=== PATIENT | female | born 1950 | race Two or more races ===

== ENCOUNTER 2018-03-17 16:57 | Inpatient (IN) | payer OTHER ==
[~2018-03-17] VITALS: Ht 149.9 cm; Wt 78.5 kg
[~2018-03-17 16:57] MED LIST: ADVAIR 2501 DISK W/1 IH; AMARIL; AVANDAMET 2 MG/1 TA1 PO; COUMADIN4 MG; CRESTOR20 MG PO; FIORICET TABLET1 TAB; FLEXERIL5 MG; GLYBURIDE MICRON6 MG PO; INTESTINEX1 CA1 PO; LEVOTHROID88 MCG PO; MAVIK2 MG; METFORMIN HCL1000 MG; NABUMETONE500 MG PO; NEURONTIN800 MG PO; OXYC1TAB9 PO; PERCOCET 5/321 UDTAB PO; PERCOCET 5/3251 TAB PO; PREVACID30 MG PO; SINGULAIR10 MG PO; TOPROL XL25 MG PO; VASOFLEX TABLET1 TAB
[2018-03-21] MEDS ORDERED: FLAGYL500MG PO (12:26)
[2018-03-21] MEDS ORDERED: COUMADIN4 MG PO (12:26)
[2018-03-21] MEDS ORDERED: CIPRO500 MG PO (12:26)
[2018-03-21] MEDS ORDERED: LEVOTHYROXINE75 MCG PO (12:26)
[2018-03-21] MEDS ORDERED: GABAPENTIN800 MG PO (12:26)
== END 2018-03-21 16:22 | disposition home or self-care (01) | DRG 392 ==
LOC: ER 16:57 → MEDI 03-18 13:25
DX: K57.32 Diverticulitis of large intestine without perforation or abscess without bleeding (principal); D68.312 Antiphospholipid antibody with hemorrhagic disorder; J45.998 Other asthma; E11.42 Type 2 diabetes mellitus with diabetic polyneuropathy; I10 Essential (primary) hypertension; E03.8 Other specified hypothyroidism; Z79.01 Long term (current) use of anticoagulants

== ENCOUNTER 2018-08-13 10:15 | Outpatient (CLI) | payer OTHER ==
[~2018-08-13 10:15] MED LIST changes: +CIPRO500 MG PO; +COUMADIN4 MG PO; +FLAGYL500MG PO; +GABAPENTIN800 MG PO; +LEVOTHYROXINE75 MCG PO
== END 2018-08-13 16:28 | disposition home or self-care (01) ==
LOC: SONOGRAMA 10:15 → MAMO-SONO 08-14 10:45 → SONOGRAMA 08-14 16:28
DX: S43.421A Sprain of right rotator cuff capsule, initial encounter (principal)

== ENCOUNTER 2019-03-03 09:06 | Emergency (ER) | payer OTHER ==
[~2019-03-03] VITALS: Ht 149.9 cm; Wt 79.4 kg
== END 2019-03-03 12:16 | disposition home or self-care (01) ==
LOC: ER 09:06
DX: M54.5 Low back pain (principal); M54.2 Cervicalgia

== ENCOUNTER 2019-03-06 11:49 | Emergency (ER) | payer OTHER ==
[~2019-03-06] VITALS: Ht 149.9 cm; Wt 79.4 kg
[2019-03-06] MEDS ORDERED: FORTAMET1000 MG (12:25)
[2019-03-06] MEDS ORDERED: NEURONTIN800 MG (12:25)
[2019-03-06] MEDS ORDERED: TOPROL XL25 M1 (12:25)
[2019-03-06] MEDS ORDERED: COUMADIN4 MG (12:25)
[2019-03-06] MEDS ORDERED: SYNTHROID75 MCG (12:25)
[2019-03-06] MEDS ORDERED: HUMULIN 70100 UNIT/2 (12:25)
== END 2019-03-06 13:58 | disposition home or self-care (01) ==
LOC: ER 11:49
DX: S40.012A Contusion of left shoulder, initial encounter (principal); S70.01XA Contusion of right hip, initial encounter; S70.02XA Contusion of left hip, initial encounter; M25.512 Pain in left shoulder; M25.552 Pain in left hip; M25.551 Pain in right hip; W01.198A Fall on same level from slipping, tripping and stumbling with subsequent striking against other object, initial encounter; Y93.89 Activity, other specified; Y92.012 Bathroom of single-family (private) house as the place of occurrence of the external cause; Y99.8 Other external cause status

== ENCOUNTER 2019-04-22 19:52 | Emergency (ER) | payer OTHER ==
[~2019-04-22] VITALS: Ht 149.9 cm; Wt 81.6 kg
[~2019-04-22 19:52] MED LIST changes: +FORTAMET1000 MG; +HUMULIN 70100 UNIT/2; +NEURONTIN800 MG; +SYNTHROID75 MCG; +TOPROL XL25 M1
== END 2019-04-22 22:30 | disposition home or self-care (01) ==
LOC: ER 19:52
DX: S39.012A Strain of muscle, fascia and tendon of lower back, initial encounter (principal); M47.897 Other spondylosis, lumbosacral region; X50.0XXA Overexertion from strenuous movement or load, initial encounter; Y93.E9 Activity, other interior property and clothing maintenance; Y92.018 Other place in single-family (private) house as the place of occurrence of the external cause; Y99.8 Other external cause status

== ENCOUNTER → 2019-06-24 | Outpatient (CLI) | payer OTHER | END | disposition home or self-care (01) | LOC: NUCLEAR 07:00 | DX: I82.90 Acute embolism and thrombosis of unspecified vein (principal); D68.312 Antiphospholipid antibody with hemorrhagic disorder; R59.1 Generalized enlarged lymph nodes | CPT/HCPCS: 78815; A9552 ==

== ENCOUNTER 2019-09-22 13:19 | Emergency (ER) | payer OTHER ==
[~2019-09-22] VITALS: Ht 149.9 cm; Wt 81.6 kg
== END 2019-09-22 15:08 | disposition home or self-care (01) ==
LOC: ER 13:19
DX: N76.4 Abscess of vulva (principal)

== ENCOUNTER 2019-11-18 10:03 | Emergency (ER) | payer OTHER ==
[~2019-11-18] VITALS: Ht 157.5 cm; Wt 75.3 kg
== END 2019-11-18 17:44 | disposition home or self-care (01) ==
LOC: ER 10:03
DX: K52.9 Noninfective gastroenteritis and colitis, unspecified (principal)

== ENCOUNTER 2023-08-30 06:10 | Outpatient (CLI) | payer OTHER ==
[2023-08-30 07:31] LABS: HEMATOCRIT 35.7 % (36.0-45.00); HEMOGLOBIN 11.8 g/dL (12.0-15.00); MEAN CELL VOLUME 89.2 fL (80.00-100.00); MEAN CORPUSCULAR HEMOGLOBIN 29.4 pg (27.00-32.0); MEAN CORPUSCULAR HGB CONC 32.9 g/dl (32.0-36.0); PLATELET COUNT 300 K/uL (150-450); RED BLOOD COUNT 4.01 M/uL (4.00-6.00); RED CELL DISTRIBUTION WIDTH 15.4 % (11.5-14.5)
[2023-08-30 07:32] LABS: URINE APPEARANCE Clear; URINE BILIRRUBIN Negative (NEGATIVE); URINE BLOOD Small; URINE COLOR Yellow; URINE LEUKOCYTE Trace; URINE NITRATE Negative; URINE PROTEIN Negative (NEGATIVE); URINE UROBILINOGEN 0.2 E.U./dl
[2023-08-30 07:38] LABS: URINE BACTERIA 113.2 uL (0.0-1933); URINE EPITHELIAL CELLS 10.6 uL (0.0-38.8); URINE RBC 12.3 uL (0.0-20.8); URINE WBC 14.5 uL (0.0-23.2)
[2023-08-30 08:09] LABS: URINE GLUCOSE 250 MG/DL (NEGATIVE)
[2023-08-30 08:30] LABS: ALBUMIN 3.4 gm/dL (3.4-5.0); BILIRUBIN TOTAL 0.47 mg/dL (0.3-1.2); CHOL HDL RATIO 4.2 (0-5.0); CREATININE SERUM 0.96 mg/dL (0.55-1.02); GFR 56.97; GLOBULINA 4.3 G/DL (2.4-3.5); POTASSIUM 4.43 mEq/L (3.5-5.1); TOTAL PROTEIN 7.7 gm/dL (6.4-8.2); TSH 0.865 uIU/mL (0.358-3.74)
== END 2023-08-30 06:13 | disposition home or self-care (01) ==
LOC: LAB 06:10
PROVIDERS: ATTEND Psychiatry & Neurology Clinical Neurophysiology
DX: I12.9 Hypertensive chronic kidney disease with stage 1 through stage 4 chronic kidney disease, or unspecified chronic kidney disease (principal); E78.2 Mixed hyperlipidemia; E11.22 Type 2 diabetes mellitus with diabetic chronic kidney disease; N18.31 Chronic kidney disease, stage 3a; N28.1 Cyst of kidney, acquired; E03.9 Hypothyroidism, unspecified; E53.8 Deficiency of other specified B group vitamins; E11.69 Type 2 diabetes mellitus with other specified complication; E06.3 Autoimmune thyroiditis; E03.8 Other specified hypothyroidism; Z68.35 Body mass index [BMI] 35.0-35.9, adult; E66.01 Morbid (severe) obesity due to excess calories; M81.0 Age-related osteoporosis without current pathological fracture; I11.9 Hypertensive heart disease without heart failure

== ENCOUNTER 2023-09-02 13:26 | Outpatient (CLI) | payer OTHER | END 2023-09-02 13:28 | disposition home or self-care (01) | LOC: TOM 13:26 → MRI 13:26 → TOM 13:28 → MRI 13:28 | PROVIDERS: ATTEND Psychiatry & Neurology Clinical Neurophysiology | DX: N28.1 Cyst of kidney, acquired (principal); I12.9 Hypertensive chronic kidney disease with stage 1 through stage 4 chronic kidney disease, or unspecified chronic kidney disease; F01.50 Vascular dementia, unspecified severity, without behavioral disturbance, psychotic disturbance, mood disturbance, and anxiety; I62.03 Nontraumatic chronic subdural hemorrhage ==

== ENCOUNTER 2023-11-23 13:04 | Inpatient (IN) | payer OTHER ==
[~2023-11-23] VITALS: Ht 162.6 cm; Wt 81.6 kg
[2023-11-23 13:44] LABS: HEMATOCRIT 35.4 % (36.0-45.00); HEMOGLOBIN 11.3 g/dL (12.0-15.00); MEAN CELL VOLUME 84.4 fL (80.00-100.00); MEAN CORPUSCULAR HEMOGLOBIN 26.8 pg (27.00-32.0); MEAN CORPUSCULAR HGB CONC 31.8 g/dl (32.0-36.0); PLATELET COUNT 186 K/uL (150-450); RED CELL DISTRIBUTION WIDTH 17.7 % (11.5-14.5)
[2023-11-23] MEDS ORDERED: ADULT LOW DOSE81 M1 PO (13:44)
[2023-11-23] MEDS ORDERED: ATORVASTATIN CA40 MG PO (13:44)
[2023-11-23 14:08] LABS: ALBUMIN 2.5 gm/dL (3.4-5.0); BILIRUBIN TOTAL 0.73 mg/dL (0.3-1.2); CALCIUM 9.7 mg/dL (8.5-10.1); CREATININE SERUM 3.26 mg/dL (0.55-1.02); GFR 13.86; GLOBULINA 4.5 G/DL (2.4-3.5); INR 1.42; PARTIAL THROMBOPLASTIN TIME 26.3 SECONDS (22.0-34.0); POTASSIUM 4.64 mEq/L (3.5-5.1); PROTHROMBIN TIME 14.5 SECONDS (9.0-11.5)
[2023-11-23 14:27] LABS: ABG PH 7.464 (7.35-7.45)
[2023-11-23 14:28] LABS: ABG PO2 163.2 mmHg (80-100); ABG pCO2 26.1 mmHg (35-45); BASE EXCESS -3.7 mmol/l; BICARBONATE 18.3 mmol/l (23-25); SaO2 99.5 %; Tco2 19.1 mmol/l; allen test SATISFACTORY; o2 21 %; puncture site RADIAL RIGHT
[2023-11-23] MEDS ORDERED: NOREPINEPHRINE BITARTRATE 1 MG/ML AMPUL IV SCH (14:45)
[2023-11-23] MEDS ORDERED: NOREPINEPHRINE BITARTRATE 8 MG IV SCH ×2 (14:45)
[2023-11-23] MEDS ORDERED: 0.9 % SODIUM CHLORIDE 1,000 ML IV SCH ×2 (14:45→23:00)
[2023-11-23] MEDS ORDERED: PIPERACILLIN/TAZOBACTAM SODIUM 2.25 GM VIAL IV ONE (15:15)
[2023-11-23] MEDS ORDERED: CEFTRIAXONE SODIUM 2,000 MG VIAL IV ONE (15:15)
[2023-11-23 15:56] LABS: URINE APPEARANCE Turbid; URINE BILIRRUBIN Negative (NEGATIVE); URINE BLOOD Large; URINE COLOR Yellow; URINE LEUKOCYTE Moderate; URINE NITRATE Negative; URINE PROTEIN Trace (NEGATIVE)
[2023-11-23 16:01] LABS: URINE EPITHELIAL CELLS 134.6 uL (0.0-38.8); URINE RBC 362.3 uL (0.0-20.8); URINE WBC 5170.4 uL (0.0-23.2)
[2023-11-23 17:02] LABS: URINE BACTERIA > 9821.5 uL (0.0-1933); URINE GLUCOSE >=1000 MG/DL (NEGATIVE)
[2023-11-23] MEDS ORDERED: DEXTROSE 50 % IN WATER 0.5 G/ML DISP.SYRIN IV PRN (23:00)
[2023-11-23] MEDS ORDERED: INSULIN LISPRO 1,000 UNIT/10 ML UNITS SUBCUTANEO PRN (23:00)
[2023-11-23] MEDS ORDERED: ACETAMINOPHEN 650 MG SUPP.RECT RECTAL PRN (23:30)
[2023-11-23] MEDS ORDERED: NOREPINEPHRINE BITARTRATE 4 MG in DEXTROSE 5 % IN WATER 250 ML IV SCH (23:30)
[2023-11-23] MEDS ORDERED: DOPamine HCL IN DEXTROSE 5 % 250 ML IV SCH (23:30)
[2023-11-24] MEDS ORDERED: PIPERACILLIN/TAZOBACTAM SODIUM 2.25 GM in DEXTROSE 5 % IN WATER 50 ML IV SCH (01:00)
[2023-11-24 02:51] LABS: ABG PH 7.355 (7.35-7.45); ABG PO2 123.1 mmHg (80-100); ABG pCO2 28.9 mmHg (35-45); BASE EXCESS -8.1 mmol/l; BICARBONATE 15.8 mmol/l (23-25); Tco2 16.7 mmol/l; o2 28 %
[2023-11-24 02:52] LABS: allen test SATISFACTORY; puncture site RADIAL RIGHT
[2023-11-24 02:53] LABS: SaO2 98.4 %
[2023-11-24 02:54] LABS: ABG PH 7.358 (7.35-7.45); ABG PO2 145.3 mmHg (80-100); ABG pCO2 4.2 mmHg (35-45); BASE EXCESS -18.7 mmol/l
[2023-11-24 02:55] LABS: BICARBONATE 2.3 mmol/l (23-25); Tco2 2.4 mmol/l; allen test SATISFACTORY; o2 100 %; puncture site RADIAL RIGHT
[2023-11-24 02:56] LABS: SaO2 98.9 %
[2023-11-24 03:02] LABS: CKMB 17.6 NG/ML (0.5-3.6)
[2023-11-24] MEDS ORDERED: LevETIRAcetam 500 MG/5 ML VIAL IV STA (04:16)
[2023-11-24 06:50] LABS: ABG PH 7.344 (7.35-7.45); ABG PO2 128.5 mmHg (80-100); ABG pCO2 29.6 mmHg (35-45); BASE EXCESS -8.4 mmol/l; BICARBONATE 15.8 mmol/l (23-25); Tco2 16.7 mmol/l; o2 28 %
[2023-11-24 06:51] LABS: allen test SATISFACTORY; puncture site RADIAL RIGHT
[2023-11-24 06:54] LABS: SaO2 98.6 %
[2023-11-24 07:45] LABS: ALBUMIN 1.9 gm/dL (3.4-5.0); BILIRUBIN TOTAL 0.59 mg/dL (0.3-1.2); BILIRUBIN,CONJUGATED 0.24 mg/dL (0.0-0.2); BILIRUBIN,UNCONJUGATED 0.35 mg/dL (0.0-0.6); CALCIUM 7.2 mg/dL (8.5-10.1); CHOL HDL RATIO 2.3 (0-5.0); GLOBULINA 3.3 G/DL (2.4-3.5); POTASSIUM 5.04 mEq/L (3.5-5.1); TOTAL PROTEIN 5.2 gm/dL (6.4-8.2)
[2023-11-24 08:37] LABS: C-REACTIVE PROTEIN 12.6 MG/DL (0.00-0.29); GFR 10.29
[2023-11-24 08:39] LABS: CKMB 20.8 NG/ML (0.5-3.6); CREATININE SERUM 4.22 mg/dL (0.55-1.02)
[2023-11-24 08:49] LABS: INR 1.81; PARTIAL THROMBOPLASTIN TIME 34.5 SECONDS (22.0-34.0)
[2023-11-24 08:51] LABS: URINE APPEARANCE Turbid; URINE BILIRRUBIN Negative (NEGATIVE); URINE BLOOD Large; URINE COLOR Dark Yellow; URINE EPITHELIAL CELLS 63.3 uL (0.0-38.8); URINE LEUKOCYTE Moderate; URINE NITRATE Negative; URINE RBC 49.7 uL (0.0-20.8); URINE WBC 661.4 uL (0.0-23.2)
[2023-11-24 08:58] LABS: URINE GLUCOSE >=1000 MG/DL (NEGATIVE); URINE PROTEIN 100 (NEGATIVE)
[2023-11-24] MEDS ORDERED: ENOXAPARIN SODIUM 40 MG/0.4 ML SYRINGE SUBCUTANEO SCH (09:00)
[2023-11-24] MEDS ORDERED: LevETIRAcetam 500 MG/5 ML VIAL IV ONE (09:00)
[2023-11-24] MEDS ORDERED: LevETIRAcetam 500 MG/5 ML VIAL IV SCH ×2 (09:00)
[2023-11-24] MEDS ORDERED: FAMOTIDINE/PF 20 MG in 0.9 % SODIUM CHLORIDE 8 ML IV PUSH SCH (09:00)
[2023-11-24 09:07] LABS: PROTHROMBIN TIME 18.2 SECONDS (9.0-11.5)
[2023-11-24 09:14] LABS: HEMATOCRIT 30.4 % (36.0-45.00); HEMOGLOBIN 9.3 g/dL (12.0-15.00); MEAN CELL VOLUME 85.7 fL (80.00-100.00); MEAN CORPUSCULAR HEMOGLOBIN 26.3 pg (27.00-32.0); MEAN CORPUSCULAR HGB CONC 30.6 g/dl (32.0-36.0); RED BLOOD COUNT 3.54 M/uL (4.00-6.00); RED CELL DISTRIBUTION WIDTH 17.7 % (11.5-14.5)
[2023-11-24 09:22] LABS: PLATELET COUNT 121 K/uL (150-450)
[2023-11-24] MEDS ORDERED: CHLORHEXIDINE GLUCONATE 120 ML BOTTLE TOP ONE (09:38)
[2023-11-24 10:00] LABS: ERYTHROCYTE SEDIMENTATION RATE 37 mm/hr
[2023-11-24] MEDS ORDERED: INSULIN NPH HUMAN ISOPHANE 1,000 UNITS/10 ML UNITS SUBCUTANEO STA (10:18)
[2023-11-24] MEDS ORDERED: MEROPENEM 1,000 MG in 0.9 % SODIUM CHLORIDE 100 ML IV SCH (12:34)
[2023-11-24 15:54] LABS: AMYLASE 212 U/L (25-115); LIPASE 44 U/L (13-75)
[2023-11-24 16:07] LABS: T4 TOTAL 4.9 UG/DL (4.8-13.9); TSH 1.76 uIU/mL (0.358-3.74)
[2023-11-24 16:19] LABS: CKMB 14.3 NG/ML (0.5-3.6)
[2023-11-24] MEDS ORDERED: (FF) Daptomycin 50 MG/ML IV SCH (17:00)
[2023-11-24] MEDS ORDERED: LevETIRAcetam 5 MG/1 ML REDILUIDO IV SCH (21:00)
[2023-11-24] MEDS ORDERED: INSULIN NPH HUMAN ISOPHANE 1,000 UNITS/10 ML UNITS SUBCUTANEO SCH (21:00)
[2023-11-25 06:25] LABS: ABG PH 7.361 (7.35-7.45); ABG PO2 126.8 mmHg (80-100); ABG pCO2 28.2 mmHg (35-45); BASE EXCESS -8.1 mmol/l; BICARBONATE 15.6 mmol/l (23-25); SaO2 98.6 %; Tco2 16.5 mmol/l
[2023-11-25 06:26] LABS: puncture site RADIAL RIGHT
[2023-11-25 06:28] LABS: o2 28 %
[2023-11-25 06:34] LABS: HEMATOCRIT 27.3 % (36.0-45.00); MEAN CELL VOLUME 84.6 fL (80.00-100.00); MEAN CORPUSCULAR HEMOGLOBIN 26.9 pg (27.00-32.0); MEAN CORPUSCULAR HGB CONC 31.8 g/dl (32.0-36.0); PLATELET COUNT 148 K/uL (150-450); RED BLOOD COUNT 3.23 M/uL (4.00-6.00); RED CELL DISTRIBUTION WIDTH 18.1 % (11.5-14.5)
[2023-11-25 06:42] LABS: HEMOGLOBIN 8.7 g/dL (12.0-15.00)
[2023-11-25 07:01] LABS: ALBUMIN 1.7 gm/dL (3.4-5.0); BILIRUBIN TOTAL 0.59 mg/dL (0.3-1.2); GLOBULINA 3.1 G/DL (2.4-3.5); MAGNESIUM 2.4 mg/dL (1.8-2.4); POTASSIUM 4.08 mEq/L (3.5-5.1); TOTAL PROTEIN 4.8 gm/dL (6.4-8.2)
[2023-11-25 07:12] LABS: GFR 8.95
[2023-11-25 07:13] LABS: CALCIUM 6.4 mg/dL (8.5-10.1)
[2023-11-25 07:14] LABS: CREATININE SERUM 4.76 mg/dL (0.55-1.02)
[2023-11-25] MEDS ORDERED: PHENYLEPHRINE HCL 20 MG in 0.9 % SODIUM CHLORIDE 250 ML IV SCH (07:45)
[2023-11-25] MEDS ORDERED: HYDROCORTISONE SODIUM SUCC/PF 100 MG VIAL IV SCH (08:00)
[2023-11-25] MEDS ORDERED: ZINC OXIDE 30 GM,NYSTATIN 30 GM,SILVER SULFADIAZINE 50 GM TOP SCH (13:00)
[2023-11-25] MEDS ORDERED: DOPamine HCL IN DEXTROSE 5 % 250 ML IV SCH (13:45)
[2023-11-26 06:37] LABS: ABG PH 7.355 (7.35-7.45); ABG PO2 147.7 mmHg (80-100); ABG pCO2 23.6 mmHg (35-45); BASE EXCESS -10.5 mmol/l
[2023-11-26 06:38] LABS: BICARBONATE 12.9 mmol/l (23-25); Tco2 13.6 mmol/l; allen test SATISFACTORY; o2 28 %; puncture site RADIAL LEFT
[2023-11-26 07:12] LABS: HEMATOCRIT 26.1 % (36.0-45.00); MEAN CELL VOLUME 83.8 fL (80.00-100.00); MEAN CORPUSCULAR HGB CONC 32.2 g/dl (32.0-36.0); PLATELET COUNT 162 K/uL (150-450); RED BLOOD COUNT 3.12 M/uL (4.00-6.00); RED CELL DISTRIBUTION WIDTH 17.5 % (11.5-14.5)
[2023-11-26 07:13] LABS: HEMOGLOBIN 8.4 g/dL (12.0-15.00); MEAN CORPUSCULAR HEMOGLOBIN 26.9 pg (27.00-32.0)
[2023-11-26 07:28] LABS: ALBUMIN 1.6 gm/dL (3.4-5.0); BILIRUBIN TOTAL 0.77 mg/dL (0.3-1.2); GLOBULINA 3.2 G/DL (2.4-3.5); POTASSIUM 4.01 mEq/L (3.5-5.1); TOTAL PROTEIN 4.8 gm/dL (6.4-8.2)
[2023-11-26 07:31] LABS: GFR 9.41
[2023-11-26 07:41] LABS: CREATININE SERUM 4.56 mg/dL (0.55-1.02)
[2023-11-26] MEDS ORDERED: PHENYLEPHRINE HCL 80 MG in 0.9 % SODIUM CHLORIDE 1,000 ML IV SCH (07:45)
[2023-11-26] MEDS ORDERED: CALCIUM GLUCONATE 100 MG/ML VIAL IV ONE (08:45)
[2023-11-26] MEDS ORDERED: FAMOTIDINE/PF 20 MG in 0.9 % SODIUM CHLORIDE 8 ML IV PUSH SCH (09:00)
[2023-11-26] MEDS ORDERED: NOREPINEPHRINE BITARTRATE 8 MG in DEXTROSE 5 % IN WATER 250 ML IV SCH (14:45)
[2023-11-26] MEDS ORDERED: SODIUM BICARBONATE 1 MEQ/ML DISP.SYRIN 50ML IV SCH (18:11)
[2023-11-26] MEDS ORDERED: INSULIN NPH HUMAN ISOPHANE 1,000 UNITS/10 ML UNITS SUBCUTANEO SCH (21:00)
[2023-11-26 21:52] LABS: ob POSITIVE (NEGATIVE)
[2023-11-26] MEDS ORDERED: DEXTROSE 5%-WATER 250ML IV.SOLN ONE (23:59)
[2023-11-27 07:01] LABS: ALBUMIN 1.4 gm/dL (3.4-5.0); BILIRUBIN TOTAL 0.62 mg/dL (0.3-1.2); CREATININE SERUM 3.37 mg/dL (0.55-1.02); GFR 13.34; GLOBULINA 2.5 G/DL (2.4-3.5); POTASSIUM 3.04 mEq/L (3.5-5.1); TOTAL PROTEIN 3.9 gm/dL (6.4-8.2)
[2023-11-27 07:12] LABS: CALCIUM 5.4 mg/dL (8.5-10.1); MEAN CELL VOLUME 81.5 fL (80.00-100.00); MEAN CORPUSCULAR HGB CONC 32.1 g/dl (32.0-36.0); RED BLOOD COUNT 2.39 M/uL (4.00-6.00); RED CELL DISTRIBUTION WIDTH 18.4 % (11.5-14.5)
[2023-11-27 08:05] LABS: HEMATOCRIT 19.5 % (36.0-45.00); MEAN CORPUSCULAR HEMOGLOBIN 26.3 pg (27.00-32.0)
[2023-11-27 08:07] LABS: HEMOGLOBIN 6.3 g/dL (12.0-15.00)
[2023-11-27 08:08] LABS: PLATELET COUNT 128 K/uL (150-450)
[2023-11-27 08:45] LABS: ABG PO2 152.6 mmHg (80-100); ABG pCO2 22.7 mmHg (35-45); BASE EXCESS -5.7 mmol/l; BICARBONATE 15.8 mmol/l (23-25); SaO2 99.4 %; Tco2 16.5 mmol/l
[2023-11-27 08:46] LABS: allen test SATISFACTORY; o2 28 %; puncture site RADIAL RIGHT
[2023-11-27] MEDS ORDERED: POTASSIUM CHLORIDE IN WATER 100 ML IV ONE (08:57)
[2023-11-27] MEDS ORDERED: PANTOPRAZOLE SODIUM 40 MG/VIAL VIAL IV SCH (11:45)
[2023-11-27] MEDS ORDERED: PANTOPRAZOLE SODIUM 40 MG/VIAL VIAL IV ONE (11:45)
[2023-11-27] MEDS ORDERED: DEXTROSE 5% IV SCH (16:30)
[2023-11-27] MEDS ORDERED: WATER IV SCH (16:30)
[2023-11-27] MEDS ORDERED: NOREPINEPHRINE BITARTRATE IV SCH (16:30)
[2023-11-27] MEDS ORDERED: INSULIN NPH HUMAN ISOPHANE 1,000 UNITS/10 ML UNITS SUBCUTANEO SCH (21:00)
[2023-11-28] MEDS ORDERED: HYDROCORTISONE SODIUM SUCC/PF 100 MG VIAL IV SCH ×2 (05:00→22:45)
[2023-11-28] MEDS ORDERED: SODIUM CHLORIDE 0.45 % 1,000 ML IV SCH (07:00)
[2023-11-28] MEDS ORDERED: INSULIN NPH HUMAN ISOPHANE 1,000 UNITS/10 ML UNITS SUBCUTANEO SCH (09:00)
[2023-11-28 09:24] LABS: ABG PH 7.419 (7.35-7.45)
[2023-11-28 09:25] LABS: ABG PO2 150.6 mmHg (80-100); ABG pCO2 25.9 mmHg (35-45); BASE EXCESS -6.2 mmol/l; BICARBONATE 16.4 mmol/l (23-25); SaO2 99.3 %; Tco2 17.2 mmol/l; o2 28 %
[2023-11-28 09:26] LABS: allen test SATISFACTORY; puncture site RADIAL RIGHT
[2023-11-28] MEDS ORDERED: NOREPINEPHRINE BITARTRATE 8 MG in DEXTROSE 5 % IN WATER 250 ML IV SCH ×2 (14:30→14:45)
[2023-11-28 14:44] LABS: HEMATOCRIT 27.2 % (36.0-45.00); MEAN CELL VOLUME 83.9 fL (80.00-100.00); MEAN CORPUSCULAR HGB CONC 33.7 g/dl (32.0-36.0); RED BLOOD COUNT 3.25 M/uL (4.00-6.00); RED CELL DISTRIBUTION WIDTH 15.7 % (11.5-14.5)
[2023-11-28 14:45] LABS: HEMOGLOBIN 9.2 g/dL (12.0-15.00); MEAN CORPUSCULAR HEMOGLOBIN 28.3 pg (27.00-32.0); PLATELET COUNT 101 K/uL (150-450)
[2023-11-28 15:32] LABS: ALBUMIN 1.7 gm/dL (3.4-5.0); BILIRUBIN TOTAL 1.04 mg/dL (0.3-1.2); CREATININE SERUM 2.33 mg/dL (0.55-1.02); GFR 20.42; GLOBULINA 2.7 G/DL (2.4-3.5); TOTAL PROTEIN 4.4 gm/dL (6.4-8.2)
[2023-11-28 15:39] LABS: CALCIUM 5.4 mg/dL (8.5-10.1)
[2023-11-28 15:46] LABS: MAGNESIUM 1.4 mg/dL (1.8-2.4)
[2023-11-28] MEDS ORDERED: WATER IV SCH (16:30)
[2023-11-28] MEDS ORDERED: DEXTROSE 5% IV SCH (16:30)
[2023-11-28] MEDS ORDERED: NOREPINEPHRINE BITARTRATE IV SCH (16:30)
[2023-11-28] MEDS ORDERED: POTASSIUM CHLORIDE IN WATER 100 ML IV SCH (17:00)
[2023-11-28] MEDS ORDERED: LEVOTHYROXINE SODIUM 100 MCG/VIAL VIAL IV SCH (17:00)
[2023-11-29 07:14] LABS: HEMATOCRIT 25.8 % (36.0-45.00); MEAN CELL VOLUME 84.4 fL (80.00-100.00); MEAN CORPUSCULAR HGB CONC 34.2 g/dl (32.0-36.0); RED BLOOD COUNT 3.06 M/uL (4.00-6.00); RED CELL DISTRIBUTION WIDTH 15.6 % (11.5-14.5)
[2023-11-29 07:16] LABS: MEAN CORPUSCULAR HEMOGLOBIN 28.7 pg (27.00-32.0)
[2023-11-29 07:17] LABS: HEMOGLOBIN 8.8 g/dL (12.0-15.00); PLATELET COUNT 110 K/uL (150-450)
[2023-11-29 07:36] LABS: ALBUMIN 1.6 gm/dL (3.4-5.0); BILIRUBIN TOTAL 0.83 mg/dL (0.3-1.2); CREATININE SERUM 2.1 mg/dL (0.55-1.02); GFR 23.02; GLOBULINA 2.6 G/DL (2.4-3.5); PHOSPHOROUS 3.6 mg/dL (2.5-4.9); POTASSIUM 3.51 mEq/L (3.5-5.1); TOTAL PROTEIN 4.2 gm/dL (6.4-8.2)
[2023-11-29 07:45] LABS: CALCIUM 5.9 mg/dL (8.5-10.1); MAGNESIUM 1.3 mg/dL (1.8-2.4)
[2023-11-29] MEDS ORDERED: DEXTROSE 5 % IN WATER 1,000 ML IV SCH (08:00)
[2023-11-29] MEDS ORDERED: MIDODRINE HCL 10 MG TABLET PO SCH (09:00)
[2023-11-29 09:21] LABS: ABG PH 7.432 (7.35-7.45)
[2023-11-29 09:22] LABS: ABG PO2 288.2 mmHg (80-100); ABG pCO2 23.3 mmHg (35-45); BASE EXCESS -6.9 mmol/l; BICARBONATE 15.2 mmol/l (23-25); SaO2 99.9 %; Tco2 15.9 mmol/l; allen test SATISFACTORY; o2 100 %; puncture site RADIAL LEFT
[2023-11-29] MEDS ORDERED: CALCIUM GLUCONATE 100 MG/ML VIAL IV ONE (10:00)
[2023-11-29] MEDS ORDERED: MAGNESIUM SULFATE IN WATER 2 GM/50 ML PIGGYBAG IV ONE (10:00)
[2023-11-30 07:26] LABS: HEMATOCRIT 24.2 % (36.0-45.00); MEAN CELL VOLUME 84.2 fL (80.00-100.00); MEAN CORPUSCULAR HGB CONC 34.1 g/dl (32.0-36.0); RED BLOOD COUNT 2.88 M/uL (4.00-6.00); RED CELL DISTRIBUTION WIDTH 16.5 % (11.5-14.5)
[2023-11-30 07:44] LABS: MEAN CORPUSCULAR HEMOGLOBIN 28.8 pg (27.00-32.0); PLATELET COUNT 122 K/uL (150-450)
[2023-11-30 07:45] LABS: HEMOGLOBIN 8.3 g/dL (12.0-15.00)
[2023-11-30 07:59] LABS: ALBUMIN 1.6 gm/dL (3.4-5.0); BILIRUBIN TOTAL 0.77 mg/dL (0.3-1.2); CREATININE SERUM 1.7 mg/dL (0.55-1.02); GFR 29.38; GLOBULINA 2.4 G/DL (2.4-3.5); MAGNESIUM 1.6 mg/dL (1.8-2.4); PHOSPHOROUS 3.9 mg/dL (2.5-4.9); POTASSIUM 3.38 mEq/L (3.5-5.1)
[2023-11-30] MEDS ORDERED: CEFTAROLINE FOSAMIL ACETATE 600 MG VIAL IV SCH (21:00)
[2023-12-01] MEDS ORDERED: AMIODARONE HCL 200 MG TABLET PO STA (02:35)
[2023-12-01] MEDS ORDERED: AMIODARONE IN DEXTROSE,ISO-OSM 360 MG/200 ML IV.SOLN IV ONE (04:14)
[2023-12-01] MEDS ORDERED: AMIODARONE HCL 50 MG/ML AMPUL IV ONE (04:14)
[2023-12-01] MEDS ORDERED: AMIODARONE HCL 50 MG/ML AMPUL IV STA (04:27)
[2023-12-01] MEDS ORDERED: AMIODARONE HCL 200 MG TABLET PO SCH (09:00)
[2023-12-01] MEDS ORDERED: CALCIUM GLUCONATE 100 MG/ML VIAL IV ONE (10:45)
[2023-12-01] MEDS ORDERED: POTASSIUM CHLORIDE IN WATER 100 ML IV SCH (11:28)
[2023-12-01 12:20] LABS: ABG PH 7.459 (7.35-7.45); ABG PO2 120.5 mmHg (80-100); ABG pCO2 27.4 mmHg (35-45); BASE EXCESS -3.2 mmol/l; SaO2 98.8 %; Tco2 19.8 mmol/l
[2023-12-01 12:21] LABS: o2 35 %
[2023-12-01 12:24] LABS: allen test SATISFACTORY; puncture site RADIAL LEFT
[2023-12-01] MEDS ORDERED: CLONAZEPAM 1 MG TABLET PO PRN (13:00)
[2023-12-01] MEDS ORDERED: CLONAZEPAM 1 MG TABLET PO STA (17:22)
[2023-12-02] MEDS ORDERED: INSULIN NPH HUMAN ISOPHANE 1,000 UNITS/10 ML UNITS SUBCUTANEO SCH (05:00)
[2023-12-02 07:07] LABS: MEAN CELL VOLUME 86.2 fL (80.00-100.00); MEAN CORPUSCULAR HGB CONC 32.7 g/dl (32.0-36.0); RED BLOOD COUNT 3.02 M/uL (4.00-6.00)
[2023-12-02 07:08] LABS: MEAN CORPUSCULAR HEMOGLOBIN 28.1 pg (27.00-32.0)
[2023-12-02 07:09] LABS: HEMOGLOBIN 8.5 g/dL (12.0-15.00); PLATELET COUNT 129 K/uL (150-450)
[2023-12-02 07:45] LABS: ALBUMIN 1.5 gm/dL (3.4-5.0); BILIRUBIN TOTAL 0.75 mg/dL (0.3-1.2); CALCIUM 7.1 mg/dL (8.5-10.1); CREATININE SERUM 0.98 mg/dL (0.55-1.02); GFR 55.48; GLOBULINA 2.6 G/DL (2.4-3.5); PHOSPHOROUS 2.2 mg/dL (2.5-4.9); POTASSIUM 3.39 mEq/L (3.5-5.1); TOTAL PROTEIN 4.1 gm/dL (6.4-8.2)
[2023-12-02 07:48] LABS: MAGNESIUM 1.3 mg/dL (1.8-2.4)
[2023-12-02 08:14] LABS: URINE APPEARANCE CLEAR; URINE BILIRRUBIN NEGATIVE (NEGATIVE); URINE BLOOD LARGE; URINE COLOR YELLOW; URINE GLUCOSE >1000 MG/DL (NEGATIVE); URINE LEUKOCYTE NEGATIVE; URINE NITRATE NEGATIVE; URINE PROTEIN TRACE (NEGATIVE); URINE UROBILINOGEN 0.2 E.U./dl
[2023-12-02 08:15] LABS: URINE BACTERIA MODERATE; URINE EPITHELIAL CELLS 0-4 /HPF; URINE MUCUS NEGATIVE; URINE RBC 0-3 /HPF; URINE YEAST MANY /hpf
[2023-12-02] MEDS ORDERED: MAGNESIUM SULFATE IN WATER 2 GM/50 ML PIGGYBAG IV ONE (08:15)
[2023-12-02] MEDS ORDERED: QUETIAPINE FUMARATE 25 MG TABLET PO SCH (09:00)
[2023-12-02] MEDS ORDERED: PANTOPRAZOLE SODIUM 40 MG TABLET.DR PO SCH (09:35)
[2023-12-02] MEDS ORDERED: AMIODARONE HCL 200 MG TABLET PO SCH ×2 (12:43→17:00)
[2023-12-02] MEDS ORDERED: POTASSIUM BICARBONATE/CIT AC 25 MEQ TABLET.EFF PO SCH (13:00)
[2023-12-02] MEDS ORDERED: POTASSIUM PHOS,M-BASIC-D-BASIC 9 MM in 0.9 % SODIUM CHLORIDE 250 ML IV ONE (14:00)
[2023-12-02 17:40] LABS: MEAN CORPUSCULAR HGB CONC 33.4 g/dl (32.0-36.0); RED BLOOD COUNT 2.12 M/uL (4.00-6.00); RED CELL DISTRIBUTION WIDTH 16.8 % (11.5-14.5)
[2023-12-02 17:45] LABS: MEAN CORPUSCULAR HEMOGLOBIN 28.7 pg (27.00-32.0)
[2023-12-02 17:46] LABS: HEMATOCRIT 18.3 % (36.0-45.00); HEMOGLOBIN 6.1 g/dL (12.0-15.00); PLATELET COUNT 117 K/uL (150-450)
[2023-12-02] MEDS ORDERED: PANTOPRAZOLE SODIUM 40 MG/VIAL VIAL IV SCH (18:00)
[2023-12-02] MEDS ORDERED: 0.9 % SODIUM CHLORIDE 1,000 ML IV ONE (18:00)
[2023-12-02 18:33] LABS: ALBUMIN 1.2 gm/dL (3.4-5.0); BILIRUBIN TOTAL 0.64 mg/dL (0.3-1.2); CALCIUM 6.6 mg/dL (8.5-10.1); CREATININE SERUM 0.99 mg/dL (0.55-1.02); GFR 54.83; INR 1.68; MAGNESIUM 1.5 mg/dL (1.8-2.4); PHOSPHOROUS 3.2 mg/dL (2.5-4.9); POTASSIUM 4.27 mEq/L (3.5-5.1); TOTAL PROTEIN 3.2 gm/dL (6.4-8.2)
[2023-12-02 18:37] LABS: CKMB 5.2 NG/ML (0.5-3.6)
[2023-12-02 18:45] LABS: PARTIAL THROMBOPLASTIN TIME 41.9 SECONDS (22.0-34.0)
[2023-12-02] MEDS ORDERED: MORPHINE SULFATE 2 MG/ML CARTRIDGE IV ONE ×2 (19:45→20:00)
[2023-12-02] MEDS ORDERED: 0.9 % SODIUM CHLORIDE 500 ML IV ONE (21:00)
[2023-12-02] MEDS ORDERED: CEFTAROLINE FOSAMIL ACETATE 600 MG VIAL IV SCH (21:00)
[2023-12-02] MEDS ORDERED: NOREPINEPHRINE BITARTRATE 8 MG in DEXTROSE 5 % IN WATER 250 ML IV SCH (21:00)
[2023-12-02] MEDS ORDERED: NOREPINEPHRINE BITARTRATE 1 MG/ML AMPUL IV ONE (22:33)
[2023-12-03] MEDS ORDERED: DIATRIZOATE MEGLUMINE, SODIUM 30 ML BOTTLE PO ONE ×2 (07:45→13:00)
[2023-12-03 11:07] LABS: HEMATOCRIT 31.7 % (36.0-45.00); HEMOGLOBIN 10.9 g/dL (12.0-15.00); MEAN CELL VOLUME 83.1 fL (80.00-100.00); MEAN CORPUSCULAR HEMOGLOBIN 28.5 pg (27.00-32.0); MEAN CORPUSCULAR HGB CONC 34.2 g/dl (32.0-36.0); PLATELET COUNT 113 K/uL (150-450); RED BLOOD COUNT 3.82 M/uL (4.00-6.00); RED CELL DISTRIBUTION WIDTH 16.1 % (11.5-14.5)
[2023-12-03 15:40] LABS: HEMATOCRIT 29.4 % (36.0-45.00)
[2023-12-03 15:45] LABS: MEAN CELL VOLUME 81.9 fL (80.00-100.00); MEAN CORPUSCULAR HEMOGLOBIN 27.8 pg (27.00-32.0); RED BLOOD COUNT 3.59 M/uL (4.00-6.00); RED CELL DISTRIBUTION WIDTH 16.6 % (11.5-14.5)
[2023-12-03 15:46] LABS: PLATELET COUNT 106 K/uL (150-450)
[2023-12-03 15:52] LABS: ALBUMIN 1.5 gm/dL (3.4-5.0); BILIRUBIN TOTAL 1.28 mg/dL (0.3-1.2); CALCIUM 6.8 mg/dL (8.5-10.1); CREATININE SERUM 1.52 mg/dL (0.55-1.02); GFR 33.43; GLOBULINA 2.5 G/DL (2.4-3.5); POTASSIUM 3.81 mEq/L (3.5-5.1)
[2023-12-03 15:54] LABS: MAGNESIUM 1.4 mg/dL (1.8-2.4)
[2023-12-04 01:31] LABS: HEMATOCRIT 26.5 % (36.0-45.00); MEAN CELL VOLUME 82.8 fL (80.00-100.00); MEAN CORPUSCULAR HEMOGLOBIN 28.1 pg (27.00-32.0); RED BLOOD COUNT 3.21 M/uL (4.00-6.00); RED CELL DISTRIBUTION WIDTH 16.8 % (11.5-14.5)
[2023-12-04 01:32] LABS: PLATELET COUNT 111 K/uL (150-450)
[2023-12-04] MEDS ORDERED: METRONIDAZOLE/SODIUM CHLORIDE 100 ML IV SCH (09:51)
[2023-12-04 12:12] LABS: URINE APPEARANCE Turbid; URINE BILIRRUBIN Negative (NEGATIVE); URINE BLOOD Large; URINE COLOR Yellow; URINE LEUKOCYTE Large; URINE NITRATE Negative; URINE PROTEIN 30 (NEGATIVE); URINE UROBILINOGEN 0.2 E.U./dl
[2023-12-04 12:13] LABS: URINE BACTERIA 699.2 uL (0.0-1933); URINE EPITHELIAL CELLS 47.1 uL (0.0-38.8); URINE RBC 5474.6 uL (0.0-20.8); URINE WBC 1653.6 uL (0.0-23.2)
[2023-12-04 12:31] LABS: URINE GLUCOSE 500 MG/DL (NEGATIVE)
[2023-12-04 12:34] LABS: URINE MUCUS SCANT; URINE YEAST MANY /hpf
[2023-12-04] MEDS ORDERED: FLUCONAZOLE IN NACL,ISO-OSM 200 ML IV ONE (12:45)
[2023-12-04] MEDS ORDERED: CEFTAROLINE FOSAMIL ACETATE 600 MG VIAL IV SCH (21:00)
[2023-12-05] MEDS ORDERED: FLUCONAZOLE IN NACL,ISO-OSM 100 ML IV SCH (09:00)
[2023-12-05] MEDS ORDERED: COLLAGENASE CLOSTRIDIUM HIST. 30 GM TUBE TOP SCH (09:00)
[2023-12-05] MEDS ORDERED: MIDODRINE HCL 5 MG TABLET PO SCH ×2 (09:00)
[2023-12-05 09:38] LABS: MEAN CELL VOLUME 86.6 fL (80.00-100.00); MEAN CORPUSCULAR HGB CONC 33.5 g/dl (32.0-36.0); RED BLOOD COUNT 1.69 M/uL (4.00-6.00); RED CELL DISTRIBUTION WIDTH 16.8 % (11.5-14.5)
[2023-12-05 09:42] LABS: HEMATOCRIT 14.7 % (36.0-45.00); MEAN CORPUSCULAR HEMOGLOBIN 28.9 pg (27.00-32.0); PLATELET COUNT 97 K/uL (150-450)
[2023-12-05 09:43] LABS: HEMOGLOBIN 4.9 g/dL (12.0-15.00)
[2023-12-06 11:00] LABS: HEMATOCRIT 33.4 % (36.0-45.00); HEMOGLOBIN 11.7 g/dL (12.0-15.00); MEAN CELL VOLUME 88.2 fL (80.00-100.00); MEAN CORPUSCULAR HEMOGLOBIN 30.8 pg (27.00-32.0); RED BLOOD COUNT 3.78 M/uL (4.00-6.00); RED CELL DISTRIBUTION WIDTH 15.8 % (11.5-14.5)
[2023-12-06 11:02] LABS: PLATELET COUNT 78 K/uL (150-450)
[2023-12-06 11:52] LABS: ALBUMIN 1.3 gm/dL (3.4-5.0); BILIRUBIN TOTAL 1.26 mg/dL (0.3-1.2); CALCIUM 6.6 mg/dL (8.5-10.1); CREATININE SERUM 1.71 mg/dL (0.55-1.02); GFR 29.18; GLOBULINA 2.6 G/DL (2.4-3.5); POTASSIUM 3.45 mEq/L (3.5-5.1); TOTAL PROTEIN 3.9 gm/dL (6.4-8.2)
[2023-12-06] MEDS ORDERED: MIDAZOLAM HCL 2 MG/2 ML VIAL IV ONE (14:45)
[2023-12-06] MEDS ORDERED: PEG3350/SOD SULF,BICARB,CL/KCL 4,000 ML GALLON PO ONE (19:00)
[2023-12-07] MEDS ORDERED: NA PHOS,M-B/NA PHOS,DI-BA 1 BOTTLE ENEMA RECTAL ONE (06:00)
[2023-12-07] MEDS ORDERED: MIDODRINE HCL 5 MG TABLET PO SCH (17:00)
[2023-12-08 08:07] LABS: ALBUMIN 1.3 gm/dL (3.4-5.0); BILIRUBIN TOTAL 0.91 mg/dL (0.3-1.2); CALCIUM 6.8 mg/dL (8.5-10.1); CREATININE SERUM 1.08 mg/dL (0.55-1.02); GFR 49.59; GLOBULINA 2.6 G/DL (2.4-3.5); TOTAL PROTEIN 3.9 gm/dL (6.4-8.2)
[2023-12-08 08:10] LABS: POTASSIUM 2.79 mEq/L (3.5-5.1)
[2023-12-08] MEDS ORDERED: POTASSIUM CHLORIDE IN WATER 40 MEQ/100 ML PIGGYBAG IV SCH (09:00)
[2023-12-08] MEDS ORDERED: PANTOPRAZOLE SODIUM 40 MG/VIAL VIAL IV SCH (12:00)
[2023-12-08] MEDS ORDERED: ACETAMINOPHEN WITH CODEINE PO SCH (12:04)
[2023-12-08] MEDS ORDERED: ACETAMINOPHEN WITH CODEINE PO PRN (13:13)
[2023-12-09 07:50] LABS: HEMATOCRIT 26.4 % (36.0-45.00); MEAN CELL VOLUME 90.2 fL (80.00-100.00); MEAN CORPUSCULAR HGB CONC 34.9 g/dl (32.0-36.0); RED BLOOD COUNT 2.92 M/uL (4.00-6.00); RED CELL DISTRIBUTION WIDTH 16.5 % (11.5-14.5)
[2023-12-09 07:58] LABS: MEAN CORPUSCULAR HEMOGLOBIN 31.5 pg (27.00-32.0)
[2023-12-09 07:59] LABS: HEMOGLOBIN 9.2 g/dL (12.0-15.00); PLATELET COUNT 60 K/uL (150-450)
[2023-12-09 08:15] LABS: ALBUMIN 1.2 gm/dL (3.4-5.0); CREATININE SERUM 0.77 mg/dL (0.55-1.02); GFR 73.28
[2023-12-09 08:37] LABS: CALCIUM 6.3 mg/dL (8.5-10.1); PHOSPHOROUS 1.4 mg/dL (2.5-4.9)
[2023-12-09 08:38] LABS: POTASSIUM 2.89 mEq/L (3.5-5.1)
[2023-12-09] MEDS ORDERED: POTASSIUM CHLORIDE IN WATER 40 MEQ/100 ML PIGGYBAG IV SCH ×2 (10:22→13:00)
[2023-12-09] MEDS ORDERED: MAGNESIUM SULFATE 50% 1,000 MG/2 ML VIAL IV ONE (10:30)
[2023-12-09] MEDS ORDERED: POTASSIUM PHOS,M-BASIC-D-BASIC 3 MM/ML VIAL IV ONE (10:30)
[2023-12-09] MEDS ORDERED: HYDROCORTISONE SODIUM SUCC/PF 100 MG VIAL IV SCH (10:41)
[2023-12-09] MEDS ORDERED: MAGNESIUM SULFATE IN WATER 4 GM/100 ML PIGGYBACK IV ONE (11:15)
[2023-12-09 13:31] LABS: PH,URINE 5.5 (5.0-8.0); URINE APPEARANCE Turbid; URINE BACTERIA 1608.9 uL (0.0-1933); URINE BILIRRUBIN Negative (NEGATIVE); URINE BLOOD Large; URINE COLOR Yellow; URINE LEUKOCYTE Moderate; URINE NITRATE Negative; URINE PROTEIN 30 (NEGATIVE); URINE RBC 3222.5 uL (0.0-20.8); URINE UROBILINOGEN 0.2 E.U./dl; URINE WBC 2446.5 uL (0.0-23.2)
[2023-12-09 13:39] LABS: URINE GLUCOSE >=1000 MG/DL (NEGATIVE)
[2023-12-09 13:41] LABS: URINE YEAST MODERATE /hpf
[2023-12-09] MEDS ORDERED: AA 5 %/CALCIUM/LYTES/DEXT 20 % 1,000 ML CENTRAL SCH (17:00)
[2023-12-09] MEDS ORDERED: AA 5 %/CALCIUM/LYTES/DEXT 20 % 2,000 ML CENTRAL SCH (17:00)
[2023-12-10 06:54] LABS: HEMATOCRIT 25.4 % (36.0-45.00); MEAN CELL VOLUME 91.8 fL (80.00-100.00); MEAN CORPUSCULAR HGB CONC 34.2 g/dl (32.0-36.0); RED BLOOD COUNT 2.76 M/uL (4.00-6.00); RED CELL DISTRIBUTION WIDTH 17.5 % (11.5-14.5)
[2023-12-10 07:11] LABS: HEMOGLOBIN 8.7 g/dL (12.0-15.00); MEAN CORPUSCULAR HEMOGLOBIN 31.5 pg (27.00-32.0); PLATELET COUNT 75 K/uL (150-450)
[2023-12-10 07:30] LABS: CHOL HDL RATIO 3.9 (0-5.0)
[2023-12-10 07:32] LABS: ALBUMIN 1.2 gm/dL (3.4-5.0); BILIRUBIN TOTAL 0.72 mg/dL (0.3-1.2); CREATININE SERUM 0.83 mg/dL (0.55-1.02); GFR 67.2; GLOBULINA 2.6 G/DL (2.4-3.5); MAGNESIUM 1.5 mg/dL (1.8-2.4); POTASSIUM 4.35 mEq/L (3.5-5.1); TOTAL PROTEIN 3.8 gm/dL (6.4-8.2)
[2023-12-10 07:36] LABS: CALCIUM 6.3 mg/dL (8.5-10.1)
[2023-12-10] MEDS ORDERED: CEFTAROLINE FOSAMIL ACETATE 600 MG VIAL IV SCH (09:00)
[2023-12-10] MEDS ORDERED: INSULIN NPH HUMAN ISOPHANE 1,000 UNITS/10 ML UNITS SUBCUTANEO SCH (09:00)
[2023-12-10] MEDS ORDERED: TRAMADOL HCL 50 MG TABLET PO PRN (09:30)
[2023-12-10] MEDS ORDERED: CALCIUM GLUCONATE 100 MG/ML VIAL IV ONE (09:30)
[2023-12-10 14:55] LABS: MEAN CELL VOLUME 92.6 fL (80.00-100.00); MEAN CORPUSCULAR HGB CONC 33.3 g/dl (32.0-36.0); RED BLOOD COUNT 2.48 M/uL (4.00-6.00); RED CELL DISTRIBUTION WIDTH 17.2 % (11.5-14.5)
[2023-12-10 14:56] LABS: PLATELET COUNT 74 K/uL (150-450)
[2023-12-10 14:57] LABS: HEMOGLOBIN 7.7 g/dL (12.0-15.00)
[2023-12-10] MEDS ORDERED: fentaNYL 25 MCG PATCH.TD72 TD SCH (19:00)
[2023-12-11 07:10] LABS: CYTOMEGALOVIRUS ANTIBODY IGM < 30.0 AU/mL (0.0-29.9)
[2023-12-11] MEDS ORDERED: INSULIN NPH HUMAN ISOPHANE 1,000 UNITS/10 ML UNITS SUBCUTANEO SCH (09:00)
[2023-12-12 04:22] LABS: MEAN CELL VOLUME 91.4 fL (80.00-100.00); MEAN CORPUSCULAR HGB CONC 31.9 g/dl (32.0-36.0); RED BLOOD COUNT 2.19 M/uL (4.00-6.00); RED CELL DISTRIBUTION WIDTH 19.8 % (11.5-14.5)
[2023-12-12 04:23] LABS: MEAN CORPUSCULAR HEMOGLOBIN 29.2 pg (27.00-32.0); PLATELET COUNT 67 K/uL (150-450)
[2023-12-12 04:24] LABS: HEMOGLOBIN 6.4 g/dL (12.0-15.00)
[2023-12-12] MEDS ORDERED: INSULIN NPH HUMAN ISOPHANE 1,000 UNITS/10 ML UNITS SUBCUTANEO SCH (09:00)
[2023-12-12] MEDS ORDERED: FUROsemide 20 MG/2 ML VIAL IV SCH (10:00)
[2023-12-13] MEDS ORDERED: PHENYLEPHRINE HCL 80 MG in 0.9 % SODIUM CHLORIDE 1,000 ML IV SCH (02:00)
[2023-12-13 12:57] LABS: HEMATOCRIT 30.7 % (36.0-45.00); MEAN CELL VOLUME 89.3 fL (80.00-100.00); MEAN CORPUSCULAR HGB CONC 30.9 g/dl (32.0-36.0); RED BLOOD COUNT 3.44 M/uL (4.00-6.00); RED CELL DISTRIBUTION WIDTH 18.7 % (11.5-14.5)
[2023-12-13 13:40] LABS: HEMOGLOBIN 9.5 g/dL (12.0-15.00); MEAN CORPUSCULAR HEMOGLOBIN 27.6 pg (27.00-32.0); PLATELET COUNT 46 K/uL (150-450)
== END 2023-12-13 16:25 | disposition expired | DRG 871 ==
LOC: ER 13:04 → ICU-2 23:55 → ICU 23:55
PROVIDERS: General Practice; Internal Medicine; Internal Medicine Endocrinology, Diabetes & Metabolism; Internal Medicine Gastroenterology; Internal Medicine Infectious Disease; Internal Medicine Nephrology; Psychiatry & Neurology Clinical Neurophysiology; ADMIT Specialist; ATTEND Specialist
PROC: 02HV33Z Insertion of Infusion Device into Superior Vena Cava, Percutaneous Approach (ICD-10-PCS; 2023-11-24)
PROC: 5A09557 Assistance with Respiratory Ventilation, Greater than 96 Consecutive Hours, Continuous Positive Airway Pressure (ICD-10-PCS; principal; 2023-11-25)
PROC: B24BYZZ Ultrasonography of Heart with Aorta using Other Contrast (ICD-10-PCS; 2023-11-25)
PROC: B020ZZZ Computerized Tomography (CT Scan) of Brain (ICD-10-PCS; 2023-11-25)
PROC: 30243N1 Transfusion of Nonautologous Red Blood Cells into Central Vein, Percutaneous Approach (ICD-10-PCS; 2023-11-27)
PROC: BW21ZZZ Computerized Tomography (CT Scan) of Abdomen and Pelvis (ICD-10-PCS; 2023-11-28)
PROC: B54NZZZ Ultrasonography of Left Upper Extremity Veins (ICD-10-PCS; 2023-12-02)
PROC: BW21ZZZ Computerized Tomography (CT Scan) of Abdomen and Pelvis (ICD-10-PCS; 2023-12-03)
PROC: 0DJD8ZZ Inspection of Lower Intestinal Tract, Via Natural or Artificial Opening Endoscopic (ICD-10-PCS; 2023-12-06)
DX: A41.9 Sepsis, unspecified organism (principal); J96.90 Respiratory failure, unspecified, unspecified whether with hypoxia or hypercapnia; R65.21 Severe sepsis with septic shock; N39.0 Urinary tract infection, site not specified; E87.20 Acidosis, unspecified; N17.9 Acute kidney failure, unspecified; K92.2 Gastrointestinal hemorrhage, unspecified; K55.9 Vascular disorder of intestine, unspecified; I95.9 Hypotension, unspecified; E11.22 Type 2 diabetes mellitus with diabetic chronic kidney disease; I12.9 Hypertensive chronic kidney disease with stage 1 through stage 4 chronic kidney disease, or unspecified chronic kidney disease; Z79.4 Long term (current) use of insulin; L98.419 Non-pressure chronic ulcer of buttock with unspecified severity; J44.9 Chronic obstructive pulmonary disease, unspecified; D64.9 Anemia, unspecified; D69.6 Thrombocytopenia, unspecified; A41.02 Sepsis due to Methicillin resistant Staphylococcus aureus; R57.1 Hypovolemic shock